=== PATIENT | female | born 1995 | race Caucasian/White ===

== ENCOUNTER 2016-11-12 22:15 | Emergency (ER) | payer OTHER ==
[~2016-11-12] VITALS: Ht 180.3 cm; Wt 57.4 kg
[2016-11-12 22:22] VITALS: TEMP 37.2; Ht 180.3 cm; Wt 57.4 kg
[2016-11-12] MEDS ORDERED: PRLSR20 PO (22:52)
[2016-11-12] MEDS ORDERED: DOCU100C31 PO (22:52)
[2016-11-12] MEDS ORDERED: ACET-1311 PO (22:52)
[2016-11-12] MEDS ORDERED: BCPILLS PO (22:52)
[2016-11-12] MEDS ORDERED: MIRT1TAB40 PO (22:52)
[2016-11-12 22:56] LABS: BASO % 0.2 %; BASO ABS # 0.02 K/uL (0-0.2); COMPLETE YES; HEMATOCRIT 36.3 % (37-47); IG% 0.9 %; LYMPH % 21.5 %; LYMPH ABS # 2.33 K/uL (1.2-3.4); MEAN CELL VOLUME 83.3 fL (80-100); MEAN CORPUSCULAR HEMOGLOBIN 28.2 pg (25-34); MEAN CORPUSCULAR HGB CONC 33.9 g/dl (32-36); MONO % 8.8 %; NEUT % 66.6 %; PLATELET COUNT 353 K/uL (130-400); RED BLOOD COUNT 4.36 M/uL (4.2-5.4); WHITE BLOOD COUNT 10.86 K/uL (4.8-10.8)
[2016-11-12 23:05] LABS: BUN/CREATININE RATIO 9.6 (10-20); CALCIUM 8.7 mg/dl (8.5-10.1); CREATININE 0.85 mg/dl (0.60-1.20); MAGNESIUM 1.6 mg/dl (1.8-2.4); POTASSIUM 3.9 mmol/L (3.5-5.1)
[2016-11-12 23:08] LABS: ALB/GLOB RATIO 0.7 (0.9-2)
--- NOTE | 2016-11-12 23:14 | DIAGNOSTIC IMAGING REPORT ---
CHEST ONE VIEW PORTABLE CLINICAL HISTORY: Fever. Recent surgery. COMPARISON STUDY: No previous studies for comparison. FINDINGS: The patient is rotated. Incidental note is made of an azygos fissure. No pneumothorax or pleural effusion is identified. There is right infrahilar opacity. Cardiac size is normal. Mediastinal contours are normal. There is no evidence of pulmonary edema. IMPRESSION: Apparent right infrahilar opacity which likely reflects normal structures or atelectasis. An infectious process could appear similar but is considered less likely. Radiographic follow up is recommended. Electronically signed by: Pilo Fox M.D. 11/12/2016 11:13 PM Dictated Date/Time: 11/12/2016 11:10 PM
[2016-11-12] MEDS ORDERED: HYDROmorphone INJ 1 MG/ML SYR IV STA (23:40)
[2016-11-12] MEDS ORDERED: SODIUM CHLORIDE 0.9% 1000ML 1,000 ML IV STA (23:40)
--- NOTE | 2016-11-13 00:16 | EMERGENCY ROOM VISIT NOTE ---
History Report prepared by Tanvir: Rich Bañuelos Under the Supervision of: Dr. Michelle Baraohna D.O. First contact with patient: 23:06 Chief Complaint: ABDOMINAL PAIN Stated Complaint: AB PAIN Nursing Triage Summary: Pt was discharged today from [facility]. Pt was recently diagnosed with Chrons and had part of small bowel removed with temporary ileostomy placement on October 28 at [facility]. Pt reports being discharged today and expressed concerns that she was not ready to go home. Pt was sent home with oxycodone and pt reports she has not been getting any relief. Pt also has mid lower abdominal incision with 0.5cm whole that patient reports is oozing red/yellow fluid. Pt has it covered with ABD. History of Present Illness The patient is a 21 year old female who presents to the Emergency Room with complaints of persistent abdominal pain for the past few days. The patient was discharged earlier today from [facility]. On October 28, the patient had a resection for Crohn's disease and ileostomy. The patient was discharged a week ago and went back two days later. The patient was then discharged again today. The patient notes that the oxycodone is not helping relieve her discomfort. She also complains of discomfort around her incision and leakage. She notes that this pain started last night. The patient has also had discomfort around her ileostomy since it was placed. The patient is on Flagyl and Rifampin for latent TB. The patient had a decreased appetite and fluid intake today. She denies nausea at this this time and notes she had Zofran en route to the ED. The patient denies any history of diabetes or heart problems. Her Crohn's diagnosis is new. Source of History: patient Onset: past few days Position: abdomen Timing: other (persistent) Associated Symptoms: No nausea Note: Other associated symptoms: discomfort around incision, incision leakage, decreased appetite and fluid intake Review of Systems See HPI for pertinent positives & negatives. A total of 10 systems reviewed and were otherwise negative. Past Medical & Surgical Medical Problems: (1) Pneumonia (2) Stomach problems Recent colon resection secondary to Crohn's disease with resultant ileostomy Questionable latent TB Family History FH: cancer FH: diabetes mellitus FH: hypertension Kidney stone Social History Smoking Status: Former Smoker Alcohol Use: none Housing Status: lives with family Occupation Status: unemployed Current/Historical Medications Scheduled Amino Acids (Liquacel), 30 ML PO BID Control Pills ( Control Pills), 1 TAB PO DAILY Calcium Carbonate (Antacid) (Calcium Carbonate Extra S), 750 MG PO BID Cholecalciferol (Vitamin D3), 1,000 INTER.UNIT PO DAILY Docusate Sodium (Docusate Sodium), 100 MG PO BID Lactobacillus Rhamnosus (GG) (Culturelle), 1 CAP PO BID Loperamide HCl (Loperamide HCl), 2 MG PO QID Metronidazole (Flagyl), 500 MG PO TID Mirtazapine (Mirtazapine Odt), 15 MG PO HS Omeprazole (Prilosec), 20 MG PO DAILY Rifampin (Rifadin), 600 MG PO DAILY Scheduled PRN Acetaminophen (Tylenol), 650 MG PO Q6 PRN for Pain Carisoprodol (Soma), 350 MG PO Q6 PRN for Muscle Spasms Ondansetron Hcl (Zofran), 4 MG PO Q8 PRN for Nausea Oxycodone HCl (Oxycodone HCl), 5 MG PO Q4 PRN for Pain Simethicone (Ra Gas Relief), 80 MG PO Q6 PRN for Gas or Constipation Allergies Coded Allergies: No Known Allergies (Unverified , 11/12/16) Physical Exam Vital Signs Date Time Temp Pulse Resp B/P Pulse Ox O2 Delivery O2 Flow Rate FiO2 11/13/16 02:01 99 14 132/73 98 Room Air 11/13/16 01:56 100 11/13/16 00:52 99 20 132/70 99 Room Air 11/12/16 22:23 123 11/12/16 22:22 37.2 120 21 124/72 97 Room Air Physical Exam HEENT: Head - normocephalic and atraumatic Pupils are equal, round, and reactive to light. Extraocular eye muscles are intact, and sclera are anicteric. Nose - moist nasal mucosa without discharge. Mouth - moist buccal mucosa. Oropharynx is nonerythematous and there is no tonsillar exudate or edema noted. Lips are dry and cracked. Neck: Supple; no JVD, nuchal rigidity, cervical lymphadenopathy. Heart: Tachycardic. There is a normal S1 and S2 with no murmurs, clicks, or gallops appreciated. Lungs: Clear to auscultation bilaterally with no wheezes, rales, or rhonchi. Abdomen: Midline incision appears well healing, small opening in the inferior aspect of incision which is a serosanguineous fluid, no odor. Ileostomy has significant output, exquisite tenderness surrounding incision and ileostomy. Extremities: No evidence of cyanosis, clubbing, or edema. There are easily palpable peripheral pulses. Skin: warm and dry with good turgor and no rashes. Medical Decision & Procedures ER Provider Diagnostic Interpretation: X-ray results as stated below per interpretation by me and the radiologist: CHEST ONE VIEW PORTABLE CLINICAL HISTORY: Fever. Recent surgery. COMPARISON STUDY: No previous studies for comparison. FINDINGS: The patient is rotated. Incidental note is made of an azygos fissure. No pneumothorax or pleural effusion is identified. There is right infrahilar opacity. Cardiac size is normal. Mediastinal contours are normal. There is no evidence of pulmonary edema. IMPRESSION: Apparent right infrahilar opacity which likely reflects normal structures or atelectasis. An infectious process could appear similar but is considered less likely. Radiographic follow up is recommended. Electronically signed by: Pilo Fox M.D. 11/12/2016 11:13 PM Dictated Date/Time: 11/12/2016 11:10 PM Laboratory Results 11/12/16 22:20 Red Blood Count 4.36, Mean Corpuscular Volume 83.3, Mean Corpuscular Hemoglobin 28.2, Mean Corpuscular Hemoglobin Concent 33.9, Neutrophils (%) (Auto) 66.6, Lymphocytes (%) (Auto) 21.5, Monocytes (%) (Auto) 8.8, Eosinophils (%) (Auto) 2.0, Basophils (%) (Auto) 0.2, Neutrophils # (Auto) 7.23, Lymphocytes # (Auto) 2.33, Monocytes # (Auto) 0.96, Eosinophils # (Auto) 0.22, Basophils # (Auto) 0.02 11/12/16 22:20 Test 11/12/16 22:20 11/12/16 22:38 11/13/16 00:50 White Blood Count 10.86 K/uL (4.8-10.8) Red Blood Count 4.36 M/uL (4.2-5.4) Hemoglobin 12.3 g/dL (12.0-16.0) Hematocrit 36.3 % (37-47) Mean Corpuscular Volume 83.3 fL (80-100) Mean Corpuscular Hemoglobin 28.2 pg (25-34) Mean Corpuscular Hemoglobin Concent 33.9 g/dl (32-36) Platelet Count 353 K/uL (130-400) Neutrophils (%) (Auto) 66.6 % Lymphocytes (%) (Auto) 21.5 % Monocytes (%) (Auto) 8.8 % Eosinophils (%) (Auto) 2.0 % Basophils (%) (Auto) 0.2 % Neutrophils # (Auto) 7.23 K/uL (1.4-6.5) Lymphocytes # (Auto) 2.33 K/uL (1.2-3.4) Monocytes # (Auto) 0.96 K/uL (0.11-0.59) Eosinophils # (Auto) 0.22 K/uL (0-0.5) Basophils # (Auto) 0.02 K/uL (0-0.2) Immature Granulocyte % (Auto) 0.9 % Immature Granulocyte # (Auto) 0.10 K/uL (0.00-0.02) Prothrombin Time 11.0 SECONDS (9.0-12.0) Prothromb Time International Ratio 1.0 (0.9-1.1) Activated Partial Thromboplast Time 26.1 SECONDS (21.0-31.0) Partial Thromboplastin Ratio 1.0 Anion Gap 9.0 mmol/L (3-11) Est Creatinine Clear Calc Drug Dose 94.1 ml/min Estimated GFR () 112.7 Estimated GFR (Non- 97.3 BUN/Creatinine Ratio 9.6 (10-20) Calcium Level 8.7 mg/dl (8.5-10.1) Magnesium Level 1.6 mg/dl (1.8-2.4) Total Bilirubin 0.8 mg/dl (0.2-1) Aspartate Amino Transf (AST/SGOT) 21 U/L (15-37) Alanine Aminotransferase (ALT/SGPT) 49 U/L (12-78) Alkaline Phosphatase 157 U/L (45-117) Total Protein 7.5 gm/dl (6.4-8.2) Albumin 3.0 gm/dl (3.4-5.0) Globulin 4.5 gm/dl (2.5-4.0) Albumin/Globulin Ratio 0.7 (0.9-2) Lipase 600 U/L (73-393) Bedside Lactic Acid Venous 1.28 mmol/L (0.90-1.70) Urine Color ORANGE Urine Appearance CLEAR (CLEAR) Urine pH (4.5-7.5) Urine Specific Superior 1.024 (1.000-1.030) Urine Protein NEG (NEG) Urine Glucose (UA) (NEG) Urine Ketones (NEG) Urine Occult Blood (NEG) Urine Nitrite (NEG) Urine Bilirubin (NEG) Urine Urobilinogen (NEG) Urine Leukocyte Esterase (NEG) Urine RBC 0-4 /hpf (0-4) Urine WBC 10-30 /hpf (0-5) Urine Epithelial Cells 10-20 /lpf (0-5) Urine Bacteria 1+ (NEG) Urine Mucus PRESENT (NONE PRSENT) Urine Yeast BUDDING (NONE PRSENT) Laboratory results per my review. Medications Administered Medications (Trade) Dose Ordered Sig/Krista Route Start Time Stop Time Status Last Admin Dose Admin Sodium Chloride (Nss 1000ml) 1,000 ml @ 999 mls/hr Q1H1M STAT IV 11/12/16 23:40 11/13/16 00:40 DC 11/12/16 23:40 999 MLS/HR Hydromorphone HCl (Dilaudid Inj) 1 mg NOW STAT IV 11/12/16 23:40 11/12/16 23:41 DC 11/12/16 23:50 1 MG Hydromorphone HCl (Dilaudid Inj) 0.5 mg NOW STAT IV 11/13/16 01:48 11/13/16 01:50 DC 11/13/16 01:56 0.5 MG Procedure Dilaudid Inj IV NSS IV Dilaudid Inj IV ECG Indication: abdominal pain Rate (beats per minute): 110 Rhythm: sinus tachycardia Findings: no acute ischemic change, no ectopy ED Course 2328: Past medical records reviewed. The patient was evaluated in room C9. A complete history and physical exam was performed. A septic protocol was performed. An IV lock was initiated and labs were drawn as above. 2340: Ordered Dilaudid Inj 1 mg IV, NSS 1000 ml @ 999 mls/hr IV. 2346: At this time, I reviewed the patient's discharge summary from [facility] from earlier today. 0012: At this time, I reevaluated the patient and she was feeling much better after receiving the pain medication. The patient was going to get up and try to go to the bathroom. Her heart rate is down to 98. 0146: At this time, I discussed the patient's case with Dr. Gael Charles who was familiar with the patient's case. Dr. Mayo was aware of the slightly elevated lipase in the past I explained to her that the lipase is elevated to 600. She felt that since she did not have epigastric pain the patient could be discharged. 0148: Ordered Dilaudid Inj 0.5 mg IV. 0203: Upon reevaluation, the patient is resting comfortably, eating, and drinking. I discussed findings and results with her. She verbalized agreement of the treatment plan. The patient was discharged home. Medical Decision The patient is a 21 year old female who presents to the ED with abdominal pain. Differential diagnosis includes sepsis, post surgical infection, pancreatitis, bowel obstruction, or dehydration. Labs reviewed by me: white count 10.8, stable H&H, lactic acid 1.2, glucose 100 , normal renal function, magnesium 1.6, Alkaline Phosphatase 157, normal coags, lipase 600, urinalysis 10 to 30 white blood cells, 1+ bacteria, mucus and yeast present. This is a 21-year-old female patient who is status post colon resection secondary to Crohn's disease. She has normal output from her ileostomy. In reviewing her medical records from [facility], she had an extensive stay with persistent abdominal pain and tachycardia. Radiographic studies and laboratory studies were essentially normal except for a mildly elevated lipase. I did take a swab of the discharged from the lower part of the abdominal wall incision. There is no odor to that discharge. The wound did not appear to be infected. The patient appeared dehydrated on physical exam. She was given IV crystalloid therapy along with some pain medications and is feeling much better. Heart rate has come down nicely. I've asked the patient to follow up closely with surgery in [facility]. She was told to return here to the emergency department she developed any epigastric abdominal pain, fever or intractable vomiting. Consults Time Called: 0141 Consulting Physician: Dr. Gael Charles Returned Call: 0146 At this time, I discussed the patient's case with Dr. Mayo who was familiar with the patient's case. Dr. Mayo was parker of the slightly elevated lipase in the past, however, she felt that since she did not have epigastric pain the patient could be discharged. Impression Primary Impression: Increased wound drainage Additional Impression: Pain at surgical incision Scribe Attestation The scribe's documentation has been prepared under my direction and personally reviewed by me in its entirety. I confirm that the note above accurately reflects all work, treatment, procedures, and medical decision making performed by me. Departure Information Dispostion Home / Self-Care Referrals No Doctor, Assigned (PCP) Forms HOME CARE DOCUMENTATION FORM, IMPORTANT VISIT INFORMATION Patient Instructions My [facility] Additional Instructions Rest Take your meds as directed. Keep yourself well-hydrated. Seek treatment immediately for a fever, vomiting, or foul smell to drainage Problem Qualifiers
[2016-11-13 01:31] LABS: MANUAL MICROSCOPIC REQUIRED? YES; REVIEW REQ? NO; SULFASALICYLIC ACID NEG (NEG); URINE APPEARANCE CLEAR (CLEAR); URINE COLOR ORANGE; URINE SPECIFIC GRAVITY 1.024 (1.000-1.030)
[2016-11-13 01:33] LABS: URINE RBC 0-4 /hpf (0-4)
[2016-11-13 01:34] LABS: URINE BACTERIA 1+ (NEG); URINE MUCUS PRESENT (NONE PRSENT)
[2016-11-13] MEDS ORDERED: HYDROmorphone INJ 0.5 MG/0.5 ML SYR IV STA (01:48)
[2016-11-13 02:01] VITALS: BP 132/73; PULSE 99; O2SAT 98
== END 2016-11-13 02:18 | disposition home or self-care (01) ==
LOC: EDBD 22:15 → MERGE 22:20 → C.EDC 22:20
DX: T81.89XA Other complications of procedures, not elsewhere classified, initial encounter (principal); G89.18 Other acute postprocedural pain; X58.XXXA Exposure to other specified factors, initial encounter; Z83.3 Family history of diabetes mellitus; Z82.49 Family history of ischemic heart disease and other diseases of the circulatory system; Z87.891 Personal history of nicotine dependence

== ENCOUNTER 2016-11-19 19:53 | Emergency (ER) | payer OTHER ==
[~2016-11-19] VITALS: Ht 180.3 cm; Wt 58.0 kg
[~2016-11-19 19:53] MED LIST: ACET-1311 PO; BCPILLS PO; DOCU100C31 PO; MIRT1TAB40 PO; PRLSR20 PO
[2016-11-19 19:55] VITALS: TEMP 36.7; Ht 180.3 cm; Wt 58.0 kg
[2016-11-19 21:04] VITALS: O2SAT 99
[2016-11-19] MEDS ORDERED: PROCHLORPERAZINE 5 MG/ML 2 ML VIAL IV STA (21:51)
[2016-11-19] MEDS ORDERED: DiphenhydrAMINE HCL 50 MG/ML VIAL IV STA (21:51)
[2016-11-19] MEDS ORDERED: ACETAMINOPHEN IV 100 ML IV ONE (22:00)
[2016-11-19 22:08] LABS: BASO % 0.1 %; BASO ABS # 0.02 K/uL (0-0.2); COMPLETE YES; EOS % 0.4 %; HEMATOCRIT 34.1 % (37-47); IG% 0.7 %; LYMPH ABS # 2.61 K/uL (1.2-3.4); MEAN CELL VOLUME 80.6 fL (80-100); MEAN CORPUSCULAR HEMOGLOBIN 26.5 pg (25-34); MEAN CORPUSCULAR HGB CONC 32.8 g/dl (32-36); MEAN PLATELET VOLUME 9.8 fL (7.4-10.4); MONO % 8.6 %; NEUT % 71.2 %; PLATELET COUNT 291 K/uL (130-400); RED BLOOD COUNT 4.23 M/uL (4.2-5.4); WHITE BLOOD COUNT 13.71 K/uL (4.8-10.8)
[2016-11-19 22:19] LABS: INR 1.1 (0.9-1.1); PARTIAL THROMBOPLASTIN RATIO 0.9; PROTHROMBIN TIME (PATIENT) 11.6 SECONDS (9.0-12.0)
[2016-11-19] MEDS ORDERED: IMIPENEM/CILASTATIN IV 500 MG in DEXTROSE 5% 100ML 100 ML IV STA (22:23)
[2016-11-19 22:27] LABS: BUN/CREATININE RATIO 12.5 (10-20); CALCIUM 9.6 mg/dl (8.5-10.1); CREATININE 0.93 mg/dl (0.60-1.20); MAGNESIUM 1.2 mg/dl (1.8-2.4); POTASSIUM 4.1 mmol/L (3.5-5.1)
[2016-11-19 22:29] LABS: ALB/GLOB RATIO 0.6 (0.9-2)
[2016-11-19] MEDS ORDERED: SODIUM CHLORIDE 0.9% 1000ML 1,000 ML IV ONE (22:30)
[2016-11-19] MEDS ORDERED: DAPTOMYCIN IV ONE (22:30)
[2016-11-19] MEDS ORDERED: SODIUM CHLORIDE 0.9% IV ONE (22:30)
[2016-11-19] MEDS ORDERED: MAGNESIUM SULFATE 1GM / D5W 1 GM BAG IV STA (22:35)
[2016-11-19] MEDS ORDERED: SIME80CH PO (22:52)
[2016-11-19] MEDS ORDERED: LACT1CAP3 PO (22:52)
[2016-11-19] MEDS ORDERED: IMD2 PO (22:52)
[2016-11-19] MEDS ORDERED: RIFA300C34 PO (22:52)
[2016-11-19] MEDS ORDERED: CARI350T28 PO (22:52)
[2016-11-19] MEDS ORDERED: AMINLIQ31 PO (22:52)
[2016-11-19] MEDS ORDERED: OXYC-609 PO (22:52)
[2016-11-19] MEDS ORDERED: CHOL1000 PO (22:52)
[2016-11-19] MEDS ORDERED: CALC1CHW90 PO (22:52)
[2016-11-19] MEDS ORDERED: METR-163 PO (22:52)
[2016-11-19] MEDS ORDERED: ONDA4TAB46 PO (22:52)
[2016-11-20] MEDS ORDERED: HYDROmorphone INJ 0.5 MG/0.5 ML SYR IV STA ×3 (00:41→07:18)
--- NOTE | 2016-11-20 00:57 | DIAGNOSTIC IMAGING REPORT ---
ULTRASOUND LEFT LOWER EXTREMITY VENOUS CLINICAL HISTORY: Left leg pain. Recent surgery. COMPARISON STUDY: No priors. TECHNIQUE: Real-time, grayscale, and color Doppler sonography of the deep veins of the left lower extremity was performed from the inguinal crease to the calf. Compression and augmentation were utilized. FINDINGS: There is occlusive deep venous thrombosis seen extending from the left common femoral vein to the knee. Trace flow is seen within the distal popliteal vein and within the left posterior tibial vein in the calf. The remaining calf vessels are thrombosed. There is superficial venous thrombus seen within the greater saphenous and profunda femoris veins at the junction with the common femoral vein. IMPRESSION: Extensive and occlusive deep venous thrombosis is identified throughout the left lower extremity as above. Electronically signed by: Iftikhar Otto M.D. 11/20/2016 12:55 AM Dictated Date/Time: 11/20/2016 12:52 AM
[2016-11-20] MEDS ORDERED: OPTIRAY 320 IV PRN (01:00)
[2016-11-20] MEDS ORDERED: HEPARIN 25000 UNIT/500 ML D5W ONE (01:34)
--- NOTE | 2016-11-20 01:43 | DIAGNOSTIC IMAGING REPORT ---
CT SCAN OF THE ABDOMEN AND PELVIS WITH IV CONTRAST CLINICAL HISTORY: Sepsis. Recent surgery. COMPARISON STUDY: No priors. TECHNIQUE: Following the IV administration of 93 cc of Optiray 320, CT scan of the abdomen and pelvis is performed from the lung bases to the proximal femora. Images are reviewed in the axial, sagittal, and coronal planes. IV contrast was administered without complication. Automated dose control exposure was utilized. FINDINGS: Lung bases: The heart is normal in size and without pericardial effusion. Scarring and bronchiectasis is noted in the right middle lobe. Scattered 2 to 3 mm nodules are present at the right lung base. There is no lobar consolidation or pleural effusion. Liver: The contrast-enhanced liver is enlarged, measuring 21 cm in length. The liver is normal in contour and attenuation. There is no intrahepatic biliary ductal dilatation. The hepatic veins and portal veins are patent. Gallbladder: Unremarkable. Spleen: Normal in size and attenuation. Pancreas: Unremarkable. Adrenal glands: Unremarkable. Kidneys: The contrast enhanced kidneys are normal in size and without hydronephrosis. Renal perfusion is slightly heterogeneous bilaterally. Abdominal vasculature: The abdominal aorta is normal in course and caliber. There is nonocclusive deep venous thrombosis identified in the right common iliac, as well as both the internal and external iliac veins. There is complete thrombosis of the left common iliac vein which extends from the bifurcation to the left superficial femoral vein. There is mild stranding around the left iliac vein. The IVC is patent. Bowel: There are postoperative changes from a presumed double barrel right lower quadrant ileostomy. The colon is relatively decompressed and contains residual enteric contrast. There are numerous loops of mildly thick-walled and edematous appearing small bowel seen throughout the pelvis. There is induration of the surrounding mesentery and trace interloop fluid. A small bowel anastomosis is present in the mid pelvis on image #299. No bowel obstruction is identified. The appendix is normal as visualized. Peritoneum: There is trace free fluid in the pelvis. No intraperitoneal free air is seen. A small collection posterior to the uterus is discussed below. Lymphadenopathy: None. Pelvic viscera: The bladder is distended and grossly unremarkable. The uterus is normal as visualized. There are numerous bilateral ovarian follicles. A small fluid collection is seen posterior to the uterus on image #362 and measures 1.6 x 2.9 cm. Inflammatory stranding is seen in the left groin, likely related to deep venous thrombosis. Skeletal structures: No lytic or blastic lesions are seen. Broad-based posterior disc bulge is seen at L4-L5. This likely contributes to central canal stenosis. IMPRESSION: 1. There are postoperative changes from presumed double barrel right lower quadrant ileostomy. No bowel obstruction is seen. Correlation with the operative history will be required. 2. There are numerous mildly thick-walled and edematous appearing loops of small bowel seen in the lower abdomen and pelvis. There is induration of the surrounding mesentery with trace interloop fluid. This suggests a nonspecific enteritis which could be on an infectious, inflammatory, or ischemic basis. Clinical correlation will be essential. 3. There is a small indeterminant fluid collection posterior to the uterus which measures up to 2.9 cm. A small abscess is not excluded. 4. There is complete thrombosis of the left iliac vein which extends from the bifurcation to the common femoral vein with mild surrounding inflammatory change. 5. Deep venous thrombosis is also identified within the right common iliac vein, as well as within the right internal and external iliac veins. This is nonocclusive. 6. The kidneys demonstrate slightly heterogeneous enhancement bilaterally. This is nonspecific. Correlate clinically and with urinalysis for evidence of pyelonephritis. 7. Hepatomegaly. 8. Bronchiectasis and scarring is identified in the right middle lobe. 9. Additional findings as above. Electronically signed by: Iftikhar Otto M.D. 11/20/2016 1:41 AM Dictated Date/Time: 11/20/2016 1:24 AM
--- NOTE | 2016-11-20 01:49 | DIAGNOSTIC IMAGING REPORT ---
CT ANGIOGRAM OF THE CHEST CLINICAL HISTORY: Tachycardia. Sepsis. The venous thrombosis. Atypical chest pain. Recent surgery. COMPARISON STUDY: Chest x-ray dated 11/12/2016. TECHNIQUE: Following the IV administration of 93 cc of Optiray 320, CT angiogram of the chest was performed from the upper abdomen to the thoracic inlet utilizing the pulmonary embolus protocol. Images are reviewed in the axial, sagittal, and coronal planes. 3-D MIPS images are created and assessed. IV contrast was administered without complication. CT DOSE: 494.84 mGy.cm FINDINGS: Thyroid: Imaged portions of the thyroid gland are normal in size and attenuation. Thoracic aorta: The thoracic aorta is normal in caliber and demonstrates standard 3-vessel arch anatomy. No dissection is seen. Pulmonary vasculature: The pulmonary trunk is normal in caliber. There are no filling defects identified in main, lobar, or segmental pulmonary branches to suggest pulmonary embolus. Heart: The heart is normal in size and configuration, and without pericardial effusion. Lungs and pleural spaces: An accessory azygous fissure is incidentally noted. Scarring and bronchiectasis is identified in the right middle lobe. The trachea and central airways are clear. No lobar consolidation or pleural effusion is identified. There are numerous scattered foci of tree-in-bud nodularity throughout the right upper lobe and in the right middle lobe. Tiny foci of tree-in-bud nodularity are also seen at the right lung base. The left lung appears clear. Mediastinum: There is no mediastinal lymphadenopathy. Jessica: Clear. Axillae: There is no axillary lymphadenopathy. Upper abdomen: Partially visualized upper abdominal viscera is within normal limits. See report of abdominal CT performed concurrently for intra-abdominal findings. Skeletal structures: No lytic or blastic bony lesions are seen. IMPRESSION: 1. There is no evidence of pulmonary embolus in the main, lobar, or segmental pulmonary arteries. 2. Scarring and bronchiectasis is identified in the right middle lobe and is likely chronic. 3. No lobar consolidation or pleural effusion is seen. 4. There are numerous foci of tree-in-bud nodularity throughout the right lung. This suggests an infectious/inflammatory pneumonitis and may be chronic. Clinical correlation will be required. 5. No mediastinal or hilar adenopathy is identified. Electronically signed by: Iftikhar Otto M.D. 11/20/2016 1:48 AM Dictated Date/Time: 11/20/2016 1:42 AM
--- NOTE | 2016-11-20 03:37 | EMERGENCY ROOM VISIT NOTE ---
History First contact with patient: 21:30 Chief Complaint: LEG PAIN,LEG INJURY Stated Complaint: LEFT LEG PAIN History of Present Illness The patient is a 21 year old female who presents to the Emergency Room with complaints of severe abdominal pain as well as severe left leg pain. The patient states that she had surgery performed to [facility] on October 28, roughly 3 weeks ago. She had a follow-up appointment with her surgeon 2 days ago, and was complaining of some right leg numbness. The patient has had difficulty with generalized weakness following her surgery, where she had a partial bowel resection and ileostomy placement for Crohn's disease. The patient evidently had blood work when she saw her surgeon, and this was reportedly normal. The patient has been under the care of a assisted care facility for the past few days, and she states that she has subsequently developed worsening symptoms. She rates her overall discomfort a 10/10. She has been taking oxycodone as prescribed without any relief of her symptoms. The patient does not report fever. She is nauseated without vomiting. She is not having chest pain, chest tightness, or shortness of breath. No difficulty using the bathroom. She has been unable to eat because of her symptoms. Review of Systems More than 10 systems were reviewed and otherwise negative with the exception of history of present illness. Past Medical/Surgical History Medical Problems: (1) Pneumonia (2) Stomach problems Family History FH: cancer FH: diabetes mellitus FH: hypertension Kidney stone Social History Smoking Status: Current Every Day Smoker Alcohol Use: none Housing Status: lives with family Occupation Status: unemployed Current/Historical Medications Scheduled Amino Acids (Liquacel), 30 ML PO BID Cholecalciferol (Vitamin D3), 1,000 INTER.UNIT PO DAILY Lactobacillus Rhamnosus (GG) (Culturelle), 1 CAP PO DAILY Loperamide HCl (Loperamide HCl), 2 MG PO Q4H Metronidazole (Flagyl), 500 MG PO TID Rifampin (Rifadin), 600 MG PO DAILY Scheduled PRN Calcium Carbonate (Antacid) (Calcium Carbonate Extra S), 750 MG PO UD PRN for Indigestion Carisoprodol (Soma), 350 MG PO Q6H PRN for Muscle Spasms Ondansetron Hcl (Zofran), 4 MG PO Q8 PRN for Nausea Oxycodone HCl (Oxycodone HCl), 5 MG PO Q4H PRN for Pain Simethicone (Ra Gas Relief), 80 MG PO Q6H PRN for Gas or Constipation Allergies Coded Allergies: Mirtazapine (Verified Adverse Reaction, Intermediate, Nightmares, 11/19/16) Physical Exam Vital Signs Date Time Temp Pulse Resp B/P (MAP) Pulse Ox O2 Delivery O2 Flow Rate FiO2 11/20/16 06:02 116 18 111/68 97 Room Air 11/20/16 04:51 112 16 121/79 98 Room Air 11/20/16 03:29 116 11/20/16 02:56 111 18 106/72 97 Room Air 11/20/16 01:31 101 11/20/16 00:51 112 22 113/69 97 Room Air 11/19/16 22:40 140 25 106/73 99 Room Air 11/19/16 21:12 126 11/19/16 21:04 99 Room Air 11/19/16 19:55 36.7 151 18 120/68 99 Room Air Physical Exam VITALS: Vitals are noted on the nurse's note and reviewed by myself. Vital signs with tachycardia GENERAL: White female who is crying on my presentation to the exam room. HEAD: Normocephalic atraumatic. NECK: Supple without nuchal rigidity. No lymphadenopathy. No thyromegaly. Cervical spine is nontender. HEART: Tachycardic rate with regular rhythm LUNGS: Clear to auscultation bilaterally without wheezes, rales or rhonchi. No retractions or accessory muscle use. ABDOMEN: Positive normal bowel sounds x 4. Ileostomy appears with normal output. No obvious erythema or edema around the ileostomy itself. Abdomen is diffusely tender without distinct point tenderness. MUSCULOSKELETAL: Diffuse tenderness throughout the left lower extremity which is edematous when compared to the right lower extremity. No obvious palpable cord. Exam is somewhat limited secondary to patient's discomfort. Neurovascular status is intact distally. Extremities are warm and well- perfused. NEURO: Patient was alert and oriented to person place and time. CN II through XII grossly intact. Medical Decision & Procedures ER Provider Diagnostic Interpretation: CT ANGIOGRAM OF THE CHEST CLINICAL HISTORY: Tachycardia. Sepsis. The venous thrombosis. Atypical chest pain. Recent surgery. COMPARISON STUDY: Chest x-ray dated 11/12/2016. TECHNIQUE: Following the IV administration of 93 cc of Optiray 320, CT angiogram of the chest was performed from the upper abdomen to the thoracic inlet utilizing the pulmonary embolus protocol. Images are reviewed in the axial, sagittal, and coronal planes. 3-D MIPS images are created and assessed. IV contrast was administered without complication. CT DOSE: 494.84 mGy.cm FINDINGS: Thyroid: Imaged portions of the thyroid gland are normal in size and attenuation. Thoracic aorta: The thoracic aorta is normal in caliber and demonstrates standard 3-vessel arch anatomy. No dissection is seen. Pulmonary vasculature: The pulmonary trunk is normal in caliber. There are no filling defects identified in main, lobar, or segmental pulmonary branches to suggest pulmonary embolus. Heart: The heart is normal in size and configuration, and without pericardial effusion. Lungs and pleural spaces: An accessory azygous fissure is incidentally noted. Scarring and bronchiectasis is identified in the right middle lobe. The trachea and central airways are clear. No lobar consolidation or pleural effusion is identified. There are numerous scattered foci of tree-in-bud nodularity throughout the right upper lobe and in the right middle lobe. Tiny foci of tree-in-bud nodularity are also seen at the right lung base. The left lung appears clear. Mediastinum: There is no mediastinal lymphadenopathy. Jessica: Clear. Axillae: There is no axillary lymphadenopathy. Upper abdomen: Partially visualized upper abdominal viscera is within normal limits. See report of abdominal CT performed concurrently for intra-abdominal findings. Skeletal structures: No lytic or blastic bony lesions are seen. IMPRESSION: 1. There is no evidence of pulmonary embolus in the main, lobar, or segmental pulmonary arteries. 2. Scarring and bronchiectasis is identified in the right middle lobe and is likely chronic. 3. No lobar consolidation or pleural effusion is seen. 4. There are numerous foci of tree-in-bud nodularity throughout the right lung. This suggests an infectious/inflammatory pneumonitis and may be chronic. Clinical correlation will be required. 5. No mediastinal or hilar adenopathy is identified. CT SCAN OF THE ABDOMEN AND PELVIS WITH IV CONTRAST CLINICAL HISTORY: Sepsis. Recent surgery. COMPARISON STUDY: No priors. TECHNIQUE: Following the IV administration of 93 cc of Optiray 320, CT scan of the abdomen and pelvis is performed from the lung bases to the proximal femora. Images are reviewed in the axial, sagittal, and coronal planes. IV contrast was administered without complication. Automated dose control exposure was utilized. FINDINGS: Lung bases: The heart is normal in size and without pericardial effusion. Scarring and bronchiectasis is noted in the right middle lobe. Scattered 2 to 3 mm nodules are present at the right lung base. There is no lobar consolidation or pleural effusion. Liver: The contrast-enhanced liver is enlarged, measuring 21 cm in length. The liver is normal in contour and attenuation. There is no intrahepatic biliary ductal dilatation. The hepatic veins and portal veins are patent. Gallbladder: Unremarkable. Spleen: Normal in size and attenuation. Pancreas: Unremarkable. Adrenal glands: Unremarkable. Kidneys: The contrast enhanced kidneys are normal in size and without hydronephrosis. Renal perfusion is slightly heterogeneous bilaterally. Abdominal vasculature: The abdominal aorta is normal in course and caliber. There is nonocclusive deep venous thrombosis identified in the right common iliac, as well as both the internal and external iliac veins. There is complete thrombosis of the left common iliac vein which extends from the bifurcation to the left superficial femoral vein. There is mild stranding around the left iliac vein. The IVC is patent. Bowel: There are postoperative changes from a presumed double barrel right lower quadrant ileostomy. The colon is relatively decompressed and contains residual enteric contrast. There are numerous loops of mildly thick-walled and edematous appearing small bowel seen throughout the pelvis. There is induration of the surrounding mesentery and trace interloop fluid. A small bowel anastomosis is present in the mid pelvis on image #299. No bowel obstruction is identified. The appendix is normal as visualized. Peritoneum: There is trace free fluid in the pelvis. No intraperitoneal free air is seen. A small collection posterior to the uterus is discussed below. Lymphadenopathy: None. Pelvic viscera: The bladder is distended and grossly unremarkable. The uterus is normal as visualized. There are numerous bilateral ovarian follicles. A small fluid collection is seen posterior to the uterus on image #362 and measures 1.6 x 2.9 cm. Inflammatory stranding is seen in the left groin, likely related to deep venous thrombosis. Skeletal structures: No lytic or blastic lesions are seen. Broad-based posterior disc bulge is seen at L4-L5. This likely contributes to central canal stenosis. IMPRESSION: 1. There are postoperative changes from presumed double barrel right lower quadrant ileostomy. No bowel obstruction is seen. Correlation with the operative history will be required. 2. There are numerous mildly thick-walled and edematous appearing loops of small bowel seen in the lower abdomen and pelvis. There is induration of the surrounding mesentery with trace interloop fluid. This suggests a nonspecific enteritis which could be on an infectious, inflammatory, or ischemic basis. Clinical correlation will be essential. 3. There is a small indeterminant fluid collection posterior to the uterus which measures up to 2.9 cm. A small abscess is not excluded. 4. There is complete thrombosis of the left iliac vein which extends from the bifurcation to the common femoral vein with mild surrounding inflammatory change. 5. Deep venous thrombosis is also identified within the right common iliac vein, as well as within the right internal and external iliac veins. This is nonocclusive. 6. The kidneys demonstrate slightly heterogeneous enhancement bilaterally. This is nonspecific. Correlate clinically and with urinalysis for evidence of pyelonephritis. 7. Hepatomegaly. 8. Bronchiectasis and scarring is identified in the right middle lobe. 9. Additional findings as above. ULTRASOUND LEFT LOWER EXTREMITY VENOUS CLINICAL HISTORY: Left leg pain. Recent surgery. COMPARISON STUDY: No priors. TECHNIQUE: Real-time, grayscale, and color Doppler sonography of the deep veins of the left lower extremity was performed from the inguinal crease to the calf. Compression and augmentation were utilized. FINDINGS: There is occlusive deep venous thrombosis seen extending from the left common femoral vein to the knee. Trace flow is seen within the distal popliteal vein and within the left posterior tibial vein in the calf. The remaining calf vessels are thrombosed. There is superficial venous thrombus seen within the greater saphenous and profunda femoris veins at the junction with the common femoral vein. IMPRESSION: Extensive and occlusive deep venous thrombosis is identified throughout the left lower extremity as above. Laboratory Results 11/19/16 21:58 Red Blood Count 4.23, Mean Corpuscular Volume 80.6, Mean Corpuscular Hemoglobin 26.5, Mean Corpuscular Hemoglobin Concent 32.8, Mean Platelet Volume 9.8, Neutrophils (%) (Auto) 71.2, Lymphocytes (%) (Auto) 19.0, Monocytes (%) (Auto) 8.6, Eosinophils (%) (Auto) 0.4, Basophils (%) (Auto) 0.1, Neutrophils # (Auto) 9.74, Lymphocytes # (Auto) 2.61, Monocytes # (Auto) 1.18, Eosinophils # (Auto) 0.06, Basophils # (Auto) 0.02 11/19/16 21:58 Test 11/19/16 21:58 11/19/16 22:05 White Blood Count 13.71 K/uL (4.8-10.8) Red Blood Count 4.23 M/uL (4.2-5.4) Hemoglobin 11.2 g/dL (12.0-16.0) Hematocrit 34.1 % (37-47) Mean Corpuscular Volume 80.6 fL (80-100) Mean Corpuscular Hemoglobin 26.5 pg (25-34) Mean Corpuscular Hemoglobin Concent 32.8 g/dl (32-36) Platelet Count 291 K/uL (130-400) Mean Platelet Volume 9.8 fL (7.4-10.4) Neutrophils (%) (Auto) 71.2 % Lymphocytes (%) (Auto) 19.0 % Monocytes (%) (Auto) 8.6 % Eosinophils (%) (Auto) 0.4 % Basophils (%) (Auto) 0.1 % Neutrophils # (Auto) 9.74 K/uL (1.4-6.5) Lymphocytes # (Auto) 2.61 K/uL (1.2-3.4) Monocytes # (Auto) 1.18 K/uL (0.11-0.59) Eosinophils # (Auto) 0.06 K/uL (0-0.5) Basophils # (Auto) 0.02 K/uL (0-0.2) RDW Standard Deviation 40.6 fL (36.4-46.3) RDW Coefficient of Variation 13.8 % (11.5-14.5) Immature Granulocyte % (Auto) 0.7 % Immature Granulocyte # (Auto) 0.10 K/uL (0.00-0.02) Prothrombin Time 11.6 SECONDS (9.0-12.0) Prothromb Time International Ratio 1.1 (0.9-1.1) Activated Partial Thromboplast Time 24.5 SECONDS (21.0-31.0) Partial Thromboplastin Ratio 0.9 Anion Gap 14.0 mmol/L (3-11) Est Creatinine Clear Calc Drug Dose 86.9 ml/min Estimated GFR () 101.1 Estimated GFR (Non- 87.2 BUN/Creatinine Ratio 12.5 (10-20) Calcium Level 9.6 mg/dl (8.5-10.1) Magnesium Level 1.2 mg/dl (1.8-2.4) Total Bilirubin 0.8 mg/dl (0.2-1) Aspartate Amino Transf (AST/SGOT) 19 U/L (15-37) Alanine Aminotransferase (ALT/SGPT) 38 U/L (12-78) Alkaline Phosphatase 156 U/L (45-117) Total Protein 8.4 gm/dl (6.4-8.2) Albumin 3.3 gm/dl (3.4-5.0) Globulin 5.1 gm/dl (2.5-4.0) Albumin/Globulin Ratio 0.6 (0.9-2) Lipase 350 U/L (73-393) Bedside Lactic Acid Venous 2.17 mmol/L (0.90-1.70) Medications Administered Medications (Trade) Dose Ordered Sig/Krista Route Start Time Stop Time Status Last Admin Dose Admin Acetaminophen 100 ml @ 400 mls/hr NOW ONCE IV 11/19/16 22:00 11/19/16 22:14 DC 11/19/16 22:37 400 MLS/HR Diphenhydramine HCl (Benadryl Inj) 25 mg NOW STAT IV 11/19/16 21:51 11/19/16 21:55 DC 11/19/16 21:51 25 MG Prochlorperazine Edisylate (Compazine Inj) 5 mg NOW STAT IV 11/19/16 21:51 11/19/16 21:55 DC 11/19/16 21:51 5 MG Imipenem/ Cilastatin Sodium 500 mg/Dextrose 110 ml @ 100 mls/hr NOW STAT IV 11/19/16 22:23 11/19/16 23:28 DC 11/20/16 00:59 100 MLS/HR Daptomycin 348 mg/ Sodium Chloride 56.96 ml @ 100 mls/hr NOW ONCE IV 11/19/16 22:30 11/19/16 23:04 DC 11/19/16 23:37 100 MLS/HR Sodium Chloride 1,000 ml @ 999 mls/hr Q1H1M ONCE IV 11/19/16 22:30 11/19/16 23:30 DC 11/19/16 22:38 999 MLS/HR Magnesium Sulfate (Magnesium Sulfate) 1 gm NOW STAT IV 11/19/16 22:35 11/19/16 22:36 DC 11/19/16 23:38 1 GM Heparin Sodium/ Dextrose 1 ea NOW STAT N/A 11/20/16 00:41 11/20/16 00:45 DC 11/20/16 00:41 1 EA Hydromorphone HCl (Dilaudid Inj) 0.5 mg NOW STAT IV 11/20/16 00:41 11/20/16 00:45 DC 11/20/16 00:59 0.5 MG Heparin Sodium/ Dextrose (Heparin 25,000 Unit/500ml D5W) 25,000 unit STK-MED ONCE .ROUTE 11/20/16 01:34 11/20/16 01:36 DC 11/20/16 01:44 25,000 UNIT Hydromorphone HCl (Dilaudid Inj) 0.5 mg NOW STAT IV 11/20/16 02:46 11/20/16 02:47 DC 11/20/16 02:54 0.5 MG ED Course Physical exam and history were performed. Nursing notes and EMR were reviewed. Patient appears to have diffuse abdominal pain as well as left lower leg pain. The patient has a recent history of abdominal surgery in [place]. She does not have a fever here, but appears quite uncomfortable. She is notably tachycardic. Her left leg is distinctly swollen when compared to her right leg. IV access was established and labs were obtained. Blood cultures were gathered. Ultrasound of the left lower extremity were performed. The patient is accompanied by her father, and his presence seems to cause the patient's significant anxiety. The family dynamic is atypical, and the patient' s symptoms appear significantly worse when he is present. The father was very insistent upon his daughter receiving narcotics, specifically Dilaudid for her symptoms. At this time narcotics were deferred and the patient was given IV Tylenol, IV Benadryl, and IV Compazine for her symptoms. The patient's blood work is as above and was reviewed. She does have an elevated white blood cell count of greater than 13,000. Her lactic acid is also elevated with blood cultures 2 pending. Her magnesium is 1.2, and this was also repleted through her IV. She is not anemic and her remaining labs are essentially unremarkable. Out of concern for sepsis the patient was given daptomycin and Primaxin. She was hydrated with 2 L normal saline. The patient's ultrasound is with extensive left lower extremity deep venous thrombosis and she was started on heparin here in the department. CT scans were then performed,with results as above. Notably there is no pulmonary embolism in the chest. Her CT scan of the abdomen and pelvis shows concern for possible infection versus ischemic gut versus inflammation. The patient may also have an abscess posterior to the uterus. She was provided small doses of IV Dilaudid for pain control. The case was discussed with my attending physician, Dr. Slater, who remained closely involved in patient care and decision making. The case was discussed with both the on-call [facility] hospitalist, Dr Dugan, as well as the on-call general surgeon, Dr Bryson. The concern is that the patient is having a postoperative infection, sepsis, with extensive DVT. She is a very challenging surgical case, and the recommendation was for transfer to [facility]. I spoke with the patient's surgeon, Dr Salazar, and with hospitalist Dr Noguera at [facility] in [place]. The patient was accepted in transfer to their facility. Appropriate paperwork and consents were performed to facilitate this. The patient remained in stable condition at this facility and was transported via ALS. This chart was completed utilizing [employer] Speech Voice Recognition Software. Grammatical errors, random word insertions, pronoun errors, and incomplete sentences are an occasional consequence of this system due to software limitations, ambient noise, and hardware issues. Any formal questions or concerns about the content, text, or information contained within the body of this dictation should be directly addressed to the provider for clarification. . Medical Decision Differential diagnosis: Etiologies such as ischemic gut, DVT, appendicitis, diverticulitis, PUD, biliary pathology, UTI, pancreatitis, obstruction, mesenteric ischemia, aortic pathology, infections, inflammatory bowel disease, renal colic, as well as others were entertained. Impression Primary Impression: Post-operative infection Additional Impressions: Sepsis DVT (deep venous thrombosis) Critical Care I have personally spent greater than 75 minutes of critical care time in the direct management of this patient. This includes bedside care, interpretation of diagnostic studies, and testing, discussion with consultants, patient, and family members, and other required patient management activities. This 75 minutes is in excess of all separately billable procedures. Departure Information Referrals Kaia Devine D.O. (PCP) Patient Instructions My [facility] Problem Qualifiers Additional Impressions: Sepsis Sepsis type: sepsis due to unspecified organism Qualified Codes: A41.9 - Sepsis, unspecified organism DVT (deep venous thrombosis) DVT location: lower extremity Chronicity: acute Laterality: left
[2016-11-20 07:29] VITALS: BP 107/68; PULSE 129; O2SAT 97
== END 2016-11-20 07:58 | disposition short-term general hospital (02) ==
LOC: C.EDB 19:54 → MERGE 19:54 → C.EDB 11-20 07:58
DX: T81.4XXA Infection following a procedure, initial encounter (principal); Y83.8 Other surgical procedures as the cause of abnormal reaction of the patient, or of later complication, without mention of misadventure at the time of the procedure; A41.9 Sepsis, unspecified organism; I82.4Z2 Acute embolism and thrombosis of unspecified deep veins of left distal lower extremity; K50.90 Crohn's disease, unspecified, without complications; Z93.2 Ileostomy status; Z87.01 Personal history of pneumonia (recurrent); Z80.9 Family history of malignant neoplasm, unspecified; Z83.3 Family history of diabetes mellitus; Z82.49 Family history of ischemic heart disease and other diseases of the circulatory system; F17.210 Nicotine dependence, cigarettes, uncomplicated; Z79.899 Other long term (current) drug therapy

== ENCOUNTER → 2017-08-01 | Outpatient (CLI) | payer OTHER ==
[~2017-08-01] MED LIST changes: -ACET-1311 PO; +AMINLIQ31 PO; -BCPILLS PO; +CALC1CHW90 PO; +CARI350T28 PO; +CHOL1000 PO; -DOCU100C31 PO; +GADAVIST IV PRN; +GLUCAGON FOR INJ 1 MG VIAL ONE; +IMD2 PO; +LACT1CAP3 PO; +METR-163 PO; -MIRT1TAB40 PO; +NURSING VERBAL MED ORDER ONE; +ONDA4TAB46 PO; +OXYC-609 PO; -PRLSR20 PO; +RIFA300C34 PO; +SIME80CH PO
--- NOTE | 2017-08-01 14:21 | DIAGNOSTIC IMAGING REPORT ---
MR ABDOMEN AND PELVIS ENTEROGRAPHY HISTORY: Chronic disease. Follow-up. Generalized abdominal pain and nausea. TECHNIQUE: Multiplanar multisequence MRI of the abdomen and pelvis were performed before and after the use of 5.5 cc of intravenous Gadavist. 1 mg of intramuscular glucagon was injected into the right deltoid. COMPARISON STUDY: Abdomen and pelvis CT 11/20/2016. FINDINGS: The lung bases are clear. The liver, kidneys, pancreas, gallbladder, and adrenal glands are unremarkable. The spleen has slightly increased in size. This now measures 12 cm in AP dimension. No retroperitoneal lymphadenopathy. A few mildly enlarged mesenteric lymph nodes which may be reactive. The bladder, uterus, left ovary are unremarkable. There is a 2.7 cm right ovarian cyst. The colon appears to be normal in course and caliber. Patient is status post takedown of the right lower quadrant ileostomy. Mild enhancement along the peritoneal lining of the right anterior abdomen at the site of prior ostomy. This could be due to residual postoperative change. There are few or alignment thickening and enhancing segment of small bowel seen within the abdomen. Within the deep pelvis there are 2 short segment of a single loop of small bowel best seen on image 76 of 120 of the postcontrast sequences. Proximal to this the small bowel loops are mildly distended and fluid-filled measuring up to 3 cm diameter. There is also a segment of decompressed and mildly enhancing small bowel within the right lower quadrant best seen on image 26 of 120. No fistula or abscess identified at this time. IMPRESSION: 1. Status post takedown of the right lower quadrant ostomy. The thickened loops of small bowel seen on the prior study have improved. There are few areas of mildly thickened and enhancing loops of small bowel as described above. This could be due to residual postoperative change and/or a mild resolving acute on chronic Crohn's disease. 2. Borderline distended and fluid-filled loops of small bowel which may represent a low-grade partial small bowel obstruction. A transition point is difficult to define but could be due to the short segments of thickened small bowel within the deep pelvis as described above. Electronically signed by: Jules Naranjo M.D. 08/01/2017 2:19 PM Dictated Date/Time: 08/01/2017 2:01 PM
== END | disposition home or self-care (01) ==
LOC: C.MRI 11:05
PROVIDERS: ATTEND Internal Medicine
DX: K50.812 Crohn's disease of both small and large intestine with intestinal obstruction (principal); Z93.3 Colostomy status